=== PATIENT | female | born 1960 | race Caucasian/White ===

== ENCOUNTER 2022-04-16 09:59 | Emergency (ER) | payer BC, OTHER, SELFPAY ==
--- NOTE | ~2022-04-16 | CT_ITS ---
CT SOFT TISSUE NECK WITH CONTRAST CLINICAL INFORMATION: Right parotid swelling. Rule out abscess versus mastoiditis. COMPARISON: None available. TECHNIQUE: Following the intravenous administration of 60 mL of Omnipaque 350 intravenous contrast, helical imaging was performed in the axial plane with generation of coronal and sagittal reformatted images. This CT examination was performed using dose optimization techniques as appropriate, variously including the following: *Automated exposure control *Adjustment of mA and/or kV according to patient size (this includes techniques or standardized protocols for targeted exams where dose is matched to indication/reason for exam; i.e. extremities or head) *Use of iterative reconstruction technique FINDINGS: There is stranding and edema adjacent to the heterogeneous attenuation right greater than left parotid glands and submandibular glands, findings that could reflect bilateral parotitis and/or acute bilateral submandibular sialoadenitis. There is no discrete peripherally enhancing fluid collection to suggest a drainable abscess. Cellulitic changes extend to the submandibular/submental soft tissues bilaterally and superficial to the right sternocleidomastoid muscle. No retropharyngeal collections. There are multiple punctate calculi within the left parotid gland. No calculi within Warthin's nor Stensen's duct on either side. Given the presence of fatty replacement of the submandibular glands bilaterally and heterogeneous nodularity throughout the parotid glands bilaterally, recommend correlating for clinical signs and laboratory evidence of underlying Sjogren's. Nonpathologic size criteria lymph nodes throughout the suprahyoid and infrahyoid neck without pathologic size criteria lymphadenopathy. The thyroid gland is unremarkable. No superficial mucosal space lesions. The laryngeal structures are symmetric and normal. Retropharyngeal course of the proximal right internal carotid artery. The partially imaged intracranial compartment is unremarkable. There is multilevel cervical spondylosis, severe at C5-C6. No acute osseous findings. Mild sinus mucosal disease. Small fluid level within the left sphenoid sinus. Mastoid air cells remain well-aerated. CT/CT soft tissue neck w IV con IMPRESSION: - There is stranding and edema adjacent to the heterogeneous attenuation right greater than left parotid glands and submandibular glands, findings that could reflect bilateral parotitis and/or acute bilateral submandibular sialoadenitis. There is no discrete peripherally enhancing fluid collection to suggest a drainable abscess. Cellulitic changes extend to the submandibular/submental soft tissues bilaterally and superficial to the right sternocleidomastoid muscle. No retropharyngeal collections. There are multiple punctate calculi within the left parotid gland. No calculi within Warthin's nor Stensen's duct on either side. - Given the presence of fatty replacement of the submandibular glands bilaterally and heterogeneous nodularity throughout the parotid glands bilaterally, recommend correlating for clinical signs and laboratory evidence of underlying Sjogren's.
--- NOTE | ~2022-04-16 | XR_ITS ---
EXAMINATION: XR CHEST CLINICAL INFORMATION: Cough COMPARISON: 03/03/2018 TECHNIQUE: Frontal view of the chest was obtained. FINDINGS: Eventration of the right hemidiaphragm. Lungs are clear. No focal consolidation or mass. Normal pulmonary vascularity. No pleural effusion or pneumothorax. Normal cardiomediastinal silhouette. XR/XR chest 1V IMPRESSION: No acute pulmonary disease.
[2022-04-16 10:19] VITALS: BP 160/84; PULSE 103; RESP 18; TEMP 37.1; O2SAT 98; BMI 32.5
--- NOTE | 2022-04-16 12:19 | ED_ITS ---
HPI - General Adult General Chief complaint: General Medical Stated complaint: facial swelling Time Seen by Provider: 04/16/22 11:49 Source: patient Mode of arrival: ambulatory History of Present Illness HPI narrative: 61-year-old female with a past medical history of anxiety, Sjogren's, presenting to ED sent in from urgent care for right-sided facial swelling/ pain, sore throat, myalgias/body aches & cough x 1 week. Reports swelling has been gradually increasing. Denies known fever, ear pain, difficulty /inability to swallow, hearing loss/drainage from ear, recent travel, sick contacts Onset (ago): week(s) Related Data Home Medications Medication Instructions Recorded Confirmed famotidine 40 mg tablet (Pepcid) 40 mg PO BEDTIME PRN heartburn 01/06/21 06/21/21 Previous Rx's Medication Instructions Recorded metoprolol succinate 100 mg 100 mg PO DAILY #90 tabs 07/03/21 tablet,extended release 24 hr paroxetine HCl 10 mg tablet 10 mg PO QAM #90 tabs 01/08/22 amoxicillin 875 mg-potassium 1 tab PO BID 7 days #14 tabs 04/16/22 clavulanate 125 mg tablet fluticasone propionate 50 2 spray intranasal DAILY #16 grams 04/16/22 mcg/actuation nasal spray,suspension (Flonase Allergy Relief) Allergies Allergy/AdvReac Type Severity Reaction Status Date / Time adhesive [Adhesive] Allergy Mild BLISTERS Verified 04/16/22 09:24 codeine [Codeine] Allergy Mild VOMITING Verified 04/16/22 09:24 meperidine [From Demerol] AdvReac Mild VOMITING Verified 04/16/22 09:24 Review of Systems Review of Systems: Constitutional: No Fever, No Chills, No Fatigue, No Malaise ENT/Mouth: No Ear Pain, + Nasal Congestion, No Sinus Pain, No Hoarseness, + sore throat, + Rhinorrhea, No Swallowing Difficulty Eyes: No Eye Pain, No Swelling, No Redness, No Vision Changes Cardiovascular: No Chest Pain, No SOB, No Dyspnea on Exertion, No Orthopnea, No Edema, No Palpitations Respiratory: + Cough, No Sputum, No Wheezing, No Dyspnea Gastrointestinal: No Nausea, No Vomiting, No Diarrhea, No Constipation, No Abdominal pain Genitourinary: No Dysuria, No Urinary Frequency, No Hematuria, No Flank Pain, No Hesitancy Musculoskeletal: No joint pain, + Myalgias, No Joint Swelling Skin: No Skin Lesions, No rash Neuro: No Weakness, No Dizziness, No Headache Yes all other systems are reviewed and are negative Constitutional: Constitutional: Reports as per [facility] Past Medical History Attestation statement: The following information was validated with the patient. Medical History Family history of breast cancer in sister Family history of thyroid disease Family history of thyroid disease in father Generalized anxiety disorder Heartburn Intermittent lightheadedness Intermittent palpitations Palpitations Family History Family History Brother Substance use disorder Brother Substance use disorder Father Substance use disorder Social History Social History Housing: House Alcohol intake: never Patient Tobacco Use Status: Former Tobacco user Years Smoked: 5 yrs Smoked in Last 30 Days: No Use of substances other than those prescribed or required for medical reasons: No Advance Directives: No Advance Directives Information Provided: Yes service: No Current occupational status: employed Physical Exam ED Vital Signs: Vital Signs - 24 hr 04/16/22 10:19 04/16/22 14:24 Temperature 98.7 F Pulse Rate 103 H 106 H Respiratory Rate 18 17 Blood Pressure 160/84 H 150/74 H Pulse Oximetry 98 97 Oxygen Delivery Method Room Air Room Air BMI result Body Mass Index 32.5 Const General: cooperative, healthy appearing and no acute distress Orientation/consciousness: patient oriented x3 Limitations: no limitations HENMT Other: + right parotid gland swelling with tenderness. + Right-sided cervical/submandibular lymphadenopathy Head: Yes normal to inspection and Yes atraumatic Ears: hearing grossly normal bilaterally, mastoids normal and TM abnormal wth effusion serous General nose exam: Normal external nose present Face and sinus: Yes normal facial exam Mouth: Normal oral and palatal mucosa present Throat: Yes uvula midline, No peritonsillar mass, Yes posterior oropharynx abnormal ( mild erythema), No uvula laterally displaced and No uvular edema Eyes General: appearance normal, both eyes and all related structures EOM: EOMs intact bilaterally Neck Neck: Yes normal visual inspection, Yes no meningeal signs and No anterior neck swelling Resp Effort & Inspection: normal respiratory effort, not labored, no respiratory distress and no stridor Auscultation: clear to auscultation bilaterally, no crackles, no rales and no rhonchi Cardio Rate: regular rate Heart sounds: S1 normal heart sound present and S2 normal heart sound present GI Inspection: Yes normal to inspection Palpation (GI): Soft to palpation, nontender, no guarding and not rigid Skin Rashes: no rashes Wounds: no wounds Neuro General: patient oriented x3, tone normal and no meningeal signs Gait exam (Neuro): Normal gait present Extrem General: Yes normal to inspection, Yes no pedal edema and Yes normal gait Course Course Course Narrative: -1423-- no leukocytosis. ESR WNL. AST/ ALT /alk-phos mildly elevated - CRP elevated to 9.65 - COVID-19/influenza/ RSV/rapid strep negative CT soft tissue neck w IV con IMPRESSION: - There is stranding and edema adjacent to the heterogeneous attenuation right greater than left parotid glands and submandibular glands, findings that could reflect bilateral parotitis and/or acute bilateral submandibular sialoadenitis. There is no discrete peripherally enhancing fluid collection to suggest a drainable abscess. Cellulitic changes extend to the submandibular/submental soft tissues bilaterally and superficial to the right sternocleidomastoid muscle. No retropharyngeal collections. There are multiple punctate calculi within the left parotid gland. No calculi within Warthin's nor Stensen's duct on either side. ? - Given the presence of fatty replacement of the submandibular glands bilaterally and heterogeneous nodularity throughout the parotid glands bilaterally, recommend correlating for clinical signs and laboratory evidence of underlying Sjogren's. >> will give patient dose of p.o. Decadron in the ED, results discussed. Nontoxic, handling secretions, talking in complete sentences very. Discharged home on Augmentin and Flonase. XR chest 1V IMPRESSION: No acute pulmonary disease. Results discussed with patient including worrisome signs and symptoms and strict return precautions, and when to return to the emergency department. They verbalized understanding and feel safe for discharge at this time. Medications Administered Discontinued Medications Generic Name Dose Route Start Last Admin Trade Name Freq PRN Reason Stop Dose Admin Sodium Chloride 1,000 mls @ 999 mls/hr 04/16/22 12:30 04/16/22 15:22 Ns IV 12/19/22 13:30 Infused .Q1H1M KENA Infusion Iohexol 100 ml 04/16/22 14:01 04/16/22 14:01 Iohexol 350 Mg/Ml 100 Ml Infus..Btl IV 04/16/22 14:02 60 ml ONCE ONE Administration Ketorolac Tromethamine 15 mg 04/16/22 12:26 04/16/22 13:26 Ketorolac Tromethamine 15 Mg/Ml Vial IVPUSH 04/16/22 12:27 15 mg ONCE ONE Administration Medical Decision Making Medical Decision Making MDM Narrative: 61-year-old female with a past medical history of anxiety, Sjogren's, presenting to ED sent in from urgent care for right-sided facial swelling/ pain, sore throat, myalgias/body aches & cough x 1 week. on exam vital signs stable, NAD/ nontoxic-appearing, right-sided parotid gland swelling noted with right- sided cervical lymphadenopathy and TM effusion. Oropharynx WNL, uvula midline, no stridor, talking in complete sentences. Concern for viral illness vs parotidis vs otitis vs deeper infection/ abscess. Rule out pneumonia/bronchitis. Low suspicion for ACS, no evidence of [employer] plan: COVID-19/influenza/ RSV testing, labs, Monospot, rapid strep, CT neck Differential Diagnosis Differential Diagnoses: The differential diagnosis associated with the presentation includes Admission/Observation Consideration of admission/observation: Escalation of care including admission/observation considered Lab Data [facility] Lab Attestation statement: I reviewed the patient's lab results. Result Diagrams: 04/16/22 13:17 04/16/22 13:17 Labs: Lab Results 04/16/22 04/16/22 04/16/22 Range/Units 13:17 13:17 13:17 WBC 10.3 (4.8-10.8) X10*3/uL RBC 4.77 (4.20-5.50) X10*6/uL Hgb 14.4 (12.0-16.0) g/dl Hct 43.5 (37.0-47.0) % MCV 91.2 (80.0-98.0) fL MCH 30.2 (27.0-33.0) pg MCHC 33.1 (31.0-35.0) g/dl RDW 13.0 (11.0-16.0) % Plt Count 210 (160-400) X10*3/uL MPV 8.8 L (9.4-12.3) fL Immature Gran % (Auto) 0.3 (0.0-0.4) % Neut % (Auto) 85.3 H (45-73) % Lymph % (Auto) 6.4 L (20-40) % [place] % (Auto) 6.1 (2-11) % Eos % (Auto) 1.4 (0-4) % Baso % (Auto) 0.5 (0-2) % Lymph # (Auto) 0.7 L (1.2-4.9) X10*3/uL [place] # (Auto) 0.6 (0.1-1.2) X10*3/uL Eos # (Auto) 0.1 (0.0-0.4) X10*3/uL Baso # (Auto) 0.1 (0.0-0.2) X10*3/uL Abs Immat Gran (auto) 0.03 (0.00-0.03) X10*3/uL Absolute Neuts (auto) 8.8 H (2.0-8.3) x10*3/uL Absolute Nucleated RBC 0.000 (0.0-0.012) X10*3/uL Nucleated RBC % (auto) 0.0 (0.0-0.2) /100WBC ESR 19 (0-20) MM/HR Sodium 138 (135-145) mmol/L Potassium 3.9 (3.3-5.1) mmol/L Chloride 104 (96-108) mmol/L Carbon Dioxide 25 (22-29) mmol/L Anion Gap 13 (12-20) BUN 13 (9-16) mg/dL Creatinine 0.81 (0.5-1.4) mg/dL Estim Creat Clear Calc 89.3 Estimated GFR > 60 Random Glucose 91 (60-115) mg/dL Calcium 9.5 (8.4-10.2) mg/dL Magnesium 1.9 (1.6-2.6) mg/dL Total Bilirubin 1.2 H (0.0-1.0) mg/dL Direct Bilirubin 0.4 (0.0-0.5) mg/dL AST 61 H (5-31) U/L ALT 68 H (0-31) U/L Alkaline Phosphatase 123 H (39-117) U/L C-Reactive Protein 9.65 H (< or = 0.50) mg/dL Total Protein 6.7 (6.5-8.0) g/dL Albumin 4.3 (3.5-5.0) g/dL Monoscreen (Negative) Influenza Type A (PCR) (Negative) Influenza Type B (PCR) (Negative) RSV RNA Qual (PCR) (Negative) SARS-CoV-2 RNA (RT-PCR) (Negative) S. pyogenes GrpA SALLY (Negative) 04/16/22 04/16/22 04/16/22 Range/Units 13:17 13:17 13:17 WBC (4.8-10.8) X10*3/uL RBC (4.20-5.50) X10*6/uL Hgb (12.0-16.0) g/dl Hct (37.0-47.0) % MCV (80.0-98.0) fL MCH (27.0-33.0) pg MCHC (31.0-35.0) g/dl RDW (11.0-16.0) % Plt Count (160-400) X10*3/uL MPV (9.4-12.3) fL Immature Gran % (Auto) (0.0-0.4) % Neut % (Auto) (45-73) % Lymph % (Auto) (20-40) % [place] % (Auto) (2-11) % Eos % (Auto) (0-4) % Baso % (Auto) (0-2) % Lymph # (Auto) (1.2-4.9) X10*3/uL [place] # (Auto) (0.1-1.2) X10*3/uL Eos # (Auto) (0.0-0.4) X10*3/uL Baso # (Auto) (0.0-0.2) X10*3/uL Abs Immat Gran (auto) (0.00-0.03) X10*3/uL Absolute Neuts (auto) (2.0-8.3) x10*3/uL Absolute Nucleated RBC (0.0-0.012) X10*3/uL Nucleated RBC % (auto) (0.0-0.2) /100WBC ESR (0-20) MM/HR Sodium (135-145) mmol/L Potassium (3.3-5.1) mmol/L Chloride (96-108) mmol/L Carbon Dioxide (22-29) mmol/L Anion Gap (12-20) BUN (9-16) mg/dL Creatinine (0.5-1.4) mg/dL Estim Creat Clear Calc Estimated GFR Random Glucose (60-115) mg/dL Calcium (8.4-10.2) mg/dL Magnesium (1.6-2.6) mg/dL Total Bilirubin (0.0-1.0) mg/dL Direct Bilirubin (0.0-0.5) mg/dL AST (5-31) U/L ALT (0-31) U/L Alkaline Phosphatase (39-117) U/L C-Reactive Protein (< or = 0.50) mg/dL Total Protein (6.5-8.0) g/dL Albumin (3.5-5.0) g/dL Monoscreen Negative (Negative) Influenza Type A (PCR) NEGATIVE (Negative) Influenza Type B (PCR) NEGATIVE (Negative) RSV RNA Qual (PCR) NEGATIVE (Negative) SARS-CoV-2 RNA (RT-PCR) NEGATIVE (Negative) S. pyogenes GrpA SALLY Negative (Negative) Independent Interpretation I performed an independent interpretation of an: CT Scan External Record Review External record reviewed: Office record Discharge Plan Discharge Clinical Impression: Parotiditis, Cellulitis Patient Disposition: Home, Self-Care Instructions: Cellulitis (ED) Additional Instructions: Your CT scan shows bilateral inflammation of her parotid glands/ solitary docs. You also have cellulitic changes extending from your mandible to your sternocleidomastoid muscle your blood work was otherwise reassuring. Your x-ray was unremarkable. he does not negative for COVID-19, the flu, and RSV. Augmentin is an antibiotic please take as prescribed. Flonase is a nasal decongestion spray, take as prescribed if symptoms persist or worsen, you develop increasing swelling, any difficulty/inability to swallow, difficulty breathing, or fever return to the emergency department Prescriptions: New fluticasone propionate [Flonase Allergy Relief] 50 mcg/actuation spray,suspension 2 spray intranasal DAILY Qty: 16 0RF Rx Instructions: administer into each nostril amoxicillin-pot clavulanate 875-125 mg tablet 1 tab PO BID 7 Days Qty: 14 0RF No Action metoprolol succinate 100 mg tablet extended release 24 hr 100 mg PO DAILY Qty: 90 1RF paroxetine HCl 10 mg tablet 10 mg PO QAM Qty: 90 1RF famotidine [Pepcid] 40 mg tablet 40 mg PO BEDTIME PRN (Reason: heartburn) Referrals: Isabel Astorga MD [Primary Care Provider] - 3 days
[2022-04-16 13:22] LABS: MANUAL DIFF FLAG NO
[2022-04-16 13:25] LABS: Basophils Absolute Auto 0.1 X10*3/uL (0.0-0.2); Basophils Percent Auto 0.5 % (0-2); Eosinophils Absolute Auto 0.1 X10*3/uL (0.0-0.4); Eosinophils Percent Auto 1.4 % (0-4); Hematocrit 43.5 % (37.0-47.0); Hemoglobin 14.4 g/dl (12.0-16.0); Imm Gran Abs Auto 0.03 X10*3/uL (0.00-0.03); Imm Gran Pct Auto 0.3 % (0.0-0.4); Lymphocytes Absolute Auto 0.7 X10*3/uL (1.2-4.9); Lymphocytes Percent Auto 6.4 % (20-40); Mean Corpuscular HGB Conc 33.1 g/dl (31.0-35.0); Mean Corpuscular Hemoglobin 30.2 pg (27.0-33.0); Mean Corpuscular Volume 91.2 fL (80.0-98.0); Mean Platelet Volume 8.8 fL (9.4-12.3); Monocytes Absolute Auto 0.6 X10*3/uL (0.1-1.2); Monocytes Percent Auto 6.1 % (2-11); Neutrophils Absolute Auto 8.8 x10*3/uL (2.0-8.3); Neutrophils Percent Auto 85.3 % (45-73); Platelet Count 210 X10*3/uL (160-400); Red Blood Count 4.77 X10*6/uL (4.20-5.50); White Blood Count 10.3 X10*3/uL (4.8-10.8)
[2022-04-16] MEDS: Ketorolac Tromethamine 15 MG/ML VIAL IVPUSH (13:26)
[2022-04-16] MEDS: 0.9 % Sodium Chloride 1,000 ML 999 ML IV (13:26)
[2022-04-16 13:43] LABS: Alanine Aminotransferase 68 U/L (0-31); Albumin Level 4.3 g/dL (3.5-5.0); Alkaline Phosphatase 123 U/L (39-117); Anion Gap 13 (12-20); Aspartate Amino Transferase 61 U/L (5-31); Bilirubin Direct 0.4 mg/dL (0.0-0.5); Bilirubin Total 1.2 mg/dL (0.0-1.0); Blood Urea Nitrogen 13 mg/dL (9-16); C Reactive Protein 9.65 mg/dL (< or = 0.50); Calcium 9.5 mg/dL (8.4-10.2); Carbon Dioxide 25 mmol/L (22-29); Chloride 104 mmol/L (96-108); Creatinine Clr Calc Pharmacy 89.3; Estimated Glomerular Filt Rate > 60; Glucose Random 91 mg/dL (60-115); Magnesium 1.9 mg/dL (1.6-2.6); Potassium 3.9 mmol/L (3.3-5.1); Sodium 138 mmol/L (135-145); Total Protein 6.7 g/dL (6.5-8.0)
[2022-04-16 13:46] LABS: Strep A Nucleic Acid Negative (Negative)
[2022-04-16] MEDS: iohexoL 350 MG/ML 100 ML INFUS..BTL IV (14:01)
[2022-04-16 14:02] LABS: Influenza A PCR NEGATIVE (Negative); Influenza B PCR NEGATIVE (Negative); Resp Syncy Virus RNA Qual PCR NEGATIVE (Negative); SARS COV2 PCR INHOUSE NEGATIVE (Negative)
[2022-04-16 14:16] LABS: Erythrocyte Sedimentation Rate 19 MM/HR (0-20)
[2022-04-16 14:24] VITALS: BP 150/74; PULSE 106; RESP 17; O2SAT 97
[2022-04-16 14:33] LABS: Monotest Negative (Negative)
[2022-04-20 23:43] LABS: Mumps Virus IgM Antibody <1:20 titer
== END 2022-04-16 15:34 | disposition home or self-care (01) ==
PROVIDERS: Physician Assistant; Emergency Provider Emergency Medicine; PCP Internal Medicine
DX: K11.20 Sialoadenitis, unspecified (principal); L03.90 Cellulitis, unspecified; M79.10 Myalgia, unspecified site; R05.9 Cough, unspecified; M54.2 Cervicalgia; Z20.822 Contact with and (suspected) exposure to COVID-19; Z79.899 Other long term (current) drug therapy
CPT/HCPCS: 0241U; 36415; 70491; 71045; 80048; 80076; 83735; 85025; 85652; 86140; 86308; 86735; 87651; 96361; 96374; 99284; J1885; Q9967

== ENCOUNTER 2023-06-18 08:45 | Outpatient (AMB) | payer BC, OTHER, SELFPAY ==
--- NOTE | 2023-06-18 08:54 | MHC.PC.OV ---
Vital Signs 06/18/23 09:00 Height 5 ft 7.5 in Weight 227 lb BMI 35.0 BP 92/62 Blood Pressure Location Rt brachial Position Sitting Pulse 92 Pulse Source Pulse Oximeter Pulse Oximetry (%) 94 Oxygen Delivery Method Room Air Intake Visit Reasons: med follow up Intake Note: Pt is here today for her med f/u Allergies adhesive [Adhesive] Allergy (Mild, Verified 06/18/23 09:31) BLISTERS codeine [Codeine] Allergy (Mild, Verified 06/18/23 09:31) VOMITING meperidine [From Demerol] Adverse Reaction (Mild, Verified 06/18/23 09:31) VOMITING Medication List - Last Reconciled 06/18/23 by Isabel Astorga MD famotidine (Pepcid) 40 mg PO BEDTIME PRN fluticasone propionate 50 mcg/actuation (Flonase Allergy Relief) 2 sprays intranasal DAILY metoprolol succinate ER 100 mg PO DAILY paroxetine HCl 10 mg PO QAM Tobacco use date assessed: 06/18/23 Dental Screening Dental Screen Date: 06/18/23 Did you have a dental visit in the last 12 months?: No Was dental information given to patient?: Patient has dentist HPI med follow up HPI Details 62-year-old lady here today for follow-up. She has sinus tachycardia, takes metoprolol succinate 100 mg per tablet but has cut down dose to just half a tablet at night as she has been waking up with low blood pressure readings in the morning she denies any accompanying chest pain, no shortness of breath or lightheadedness. She has frequent heartburn symptoms, has to take famotidine on a daily basis. 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 She has been applying hydrocortisone cream in the past which has helped, tried [id number] cortisone 10 cream which did not afford any relief. She has generalized anxiety anxiety disorder currently on paroxetine 10 mg daily in the morning which she has been on for several years now. Needs a refill [facility] Medical History Contact dermatitis Sjogren's syndrome Parotitis Intermittent palpitations Intermittent lightheadedness Family history of thyroid disease Family history of thyroid disease in father Family history of breast cancer in sister Generalized anxiety disorder Heartburn Palpitations Surgical History (Updated 06/18/23 @ 23:53 by Isabel Astorga MD) No pertinent past surgical history Family History Brother Substance use disorder Brother Substance use disorder Father Substance use disorder Social History Housing: House Alcohol intake: never Patient Tobacco Use Status: Former Tobacco user Years Smoked: 5 yrs e-Cigarette/Vaping Use: Never Used service: No Current occupational status: employed Cognitive needs: No Hearing needs: No Vision needs: Yes Questionnaire PHQ-9 Over the last 2 weeks, how often have you been bothered by any of the following problems? Depression Screening Interpretation: Negative Depression Screening Done: Yes 16070 - PHQ-9 Billing: Patient declined-do not bill Source: Developed by Drs. Tahir Burgess, Dominga Bran, Tal Kirby and colleagues, with an educational ricki from [employer]. Thrive Questionnaire Date Thrive assessed: 06/18/23 What is your living situation today?: I have a steady place to live Within the past 12 months, did the food you bought not last and you didn't have the money to get more?: Never true Within the past 12 months, did you worry whether your food would run out before you got money to buy more?: Never true Do you have trouble paying for medicines?: No Do you have trouble getting transportation to medical appointments?: No Do you have trouble paying your heating and electricity bill?: No Do you have trouble taking care of your child, family member or friend?: No Do you have trouble with day-to-day activities such as bathing, preparing meals, shopping, managing finances, etc.?: No Are you currently unemployed and looking for a job?: No Are you interested in more education?: No THRIVE Score: 0 AUDIT C Alcohol Use Questionnaire (AUDIT-C) 1. How often do you have a drink containing alcohol?: Never Total Score: 0 BARBARA-7 AMB Questionnaire BARBARA-7 Date BARBARA - 7 assessed: 06/18/23 Feeling nervous, anxious, or on edge: 0 = Not at all Not being able to stop or control worryin = Not at all Worrying too much about different things: 0 = Not at all Trouble relaxin = Not at all Being so restless that it is hard to sit still: 0 = Not at all Becoming easily annoyed or irritable: 0 = Not at all Feeling afraid as if something awful might happen: 0 = Not at all Total BARBARA-7 score (0-4 normal; 5-9 mild; 10-14 moderate; 15-21 severe): 0 Source: Developed by Drs. Tahir Burgess, Dominga Bran, Tal Kirby and colleagues, with an educational ricki from [employer]. BARBARA-7 Assessment Billing BARBARA-7 Assessment Tool: BARBARA-7 Assessment 39991 Review of Systems Const Denies body aches, Denies fever(s), Denies headache(s) and Denies weakness Eyes Denies change in vision ENT Denies dysphagia, Denies dizziness, Reports dry mouth, Denies headache(s), Denies mouth lesions, Denies nasal congestion, Denies nasal discharge, Denies disequilibrium, Denies sinus pain and Denies sore throat Card Denies chest pain, Denies lightheadedness and Denies dyspnea Resp Denies chest congestion, Denies cough and Denies dyspnea GI Denies abdominal pain, Denies change in bowel habits, Denies dysphagia and Reports heartburn (Takes famotidine daily) Musc Reports no additional complaints Skin/Breast Reports as per HPI, Denies breast pain and Denies breast mass Neuro Denies dizziness, Denies headache(s), Denies disequilibrium and Denies weakness Psych Reports no additional complaints Endo Reports no additional complaints Claudio/Lymph Reports no additional complaints Aller/Immun Reports no additional complaints Physical exam (Primary Care) Vital Signs: Last Vital Signs Pulse 92 06/18/23 09:00 BP 92/62 06/18/23 09:00 Pulse Ox 94 06/18/23 09:00 Oxygen Delivery Method Room Air 06/18/23 09:00 BMI result Body Mass Index 35.0 Tobacco/Smoking Status: Tobacco use Status Tobacco use date assessed 06/18/23 06/18/23 09:04 Patient Tobacco Use Status Former Tobacco user 06/18/23 09:04 e-Cigarette/Vaping Use Never Used 06/18/23 09:04 Depression Screening Interpretation: Negative Thrive Assessment: Date of Thrive Assessment Date Thrive assessed 06/18/23 06/18/23 09:06 Const Other: Alert oriented x3, no acute cardiorespiratory distress noted, ambulatory with normal gait Orientation/consciousness: patient oriented x3 HENMT Head: Yes normocephalic Ears: hearing grossly normal bilaterally, external ears normal, TM's normal bilaterally and EAC's normal Eyes General: appearance normal, both eyes and all related structures Neck Neck: Yes full ROM, Yes no lymphadenopathy and Yes supple Resp Auscultation: clear to auscultation bilaterally Cardio Other: S1-S2 present regular rate and rhythm GI Palpation (GI): Soft to palpation, nontender, no guarding and no masses Auscultation: normal bowel sounds Skin Other: Erythematous patch on distal forearm right hand/wrist Neuro General: patient oriented x3, gait normal, tone normal, moves all extremities and CN's II-XI intact bilaterally Gait exam (Neuro): Normal gait present Extrem General: Yes full ROM, Yes no joint enlargement, Yes no clubbing, cyanosis or edema and Yes normal gait Psych Appearance: grossly normal and well kempt Mental Status: mental status grossly normal Speech and movement: Normal speech and movement present Affect: normal affect Attitude: cooperative Thought process: Normal thought process present Assessment and Plan Assessment & Plan (1) Generalized anxiety disorder: Code(s): F41.1 - Generalized anxiety disorder Plan: Continue on paroxetine, 10 mg daily, refill sent (2) Intermittent palpitations: Code(s): R00.2 - Palpitations Plan: Continue with metoprolol ER 100 mg per tablet, takes half a tablet at bedtime. (3) Heartburn: Code(s): R12 - Heartburn Plan: Prescription sent for omeprazole 40 mg per capsule to take 1 capsule once a day an hour before eating for 2 months, and afterwards to just take famotidine 40 mg once a day as needed for heartburn symptoms (4) Contact dermatitis: Code(s): L25.9 - Unspecified contact dermatitis, unspecified cause Qualifiers: Contact dermatitis trigger: other chemical product Contact dermatitis type: irritant Qualified Code(s): L24.5 - Irritant contact dermatitis due to other chemical products Plan: Prescription sent for triamcinolone 0.5% cream, to apply to affected area once or twice a day for no more than 10 days at a time. Orders: Orders TSH reflex Free T4 Today F41.1 - Generalized anxiety disorder, R00.2 - Palpitations, R12 - Heartburn Complete Blood Count Auto Diff Today F41.1 - Generalized anxiety disorder, R00.2 - Palpitations, R12 - Heartburn Comprehensive Vinson. Panel Fast Today F41.1 - Generalized anxiety disorder, R00.2 - Palpitations, R12 - Heartburn Lipid Panel Today F41.1 - Generalized anxiety disorder, R00.2 - Palpitations, R12 - Heartburn Vitamin D 25-OH Total Today F41.1 - Generalized anxiety disorder, R00.2 - Palpitations, R12 - Heartburn Medications: New omeprazole 40 mg PO DAILY 90 caps 0RF triamcinolone acetonide 0.5% 1 appl topical DAILY 15 grams 1RF L25.9 - Unspecified contact dermatitis, unspecified cause Refilled paroxetine HCl 10 mg PO QAM 90 tabs 4RF Coding Level of Care Code Est Pt Level 4 (34431) Diagnoses Generalized anxiety disorder F41.1 Intermittent palpitations R00.2 Heartburn R12 Irritant contact dermatitis due to other chemical products L24.5 Contact dermatitis trigger: other chemical product Contact dermatitis type: irritant Additional Codes BARBARA-7 Assessment Billing - BARBARA-7 Assessment Tool: BARBARA-7 Assessment 69360 ([id number])
[2023-06-18 09:00] VITALS: BP 92/62; PULSE 92; O2SAT 94; BMI 35.0
== END 2023-06-18 12:34 | disposition home or self-care (01) ==
PROVIDERS: PCP Internal Medicine; Visit Provider Internal Medicine
DX: F41.1 Generalized anxiety disorder (principal); R00.2 Palpitations; R12 Heartburn; L24.5 Irritant contact dermatitis due to other chemical products
CPT/HCPCS: 99214

== ENCOUNTER 2023-06-26 08:26 | Outpatient (REF) | payer BC, OTHER, SELFPAY ==
[2023-06-26 11:08] LABS: MANUAL DIFF FLAG NO
[2023-06-26 11:28] LABS: Basophils Absolute Auto 0.1 X10*3/uL (0.0-0.2); Basophils Percent Auto 1.5 % (0-2); Eosinophils Absolute Auto 0.2 X10*3/uL (0.0-0.4); Eosinophils Percent Auto 3.8 % (0-4); Hematocrit 42.7 % (37.0-47.0); Imm Gran Abs Auto 0.02 X10*3/uL (0.00-0.03); Imm Gran Pct Auto 0.4 % (0.0-0.4); Lymphocytes Absolute Auto 0.8 X10*3/uL (1.2-4.9); Lymphocytes Percent Auto 16.6 % (20-40); Mean Corpuscular HGB Conc 32.8 g/dl (31.0-35.0); Mean Corpuscular Hemoglobin 29.9 pg (27.0-33.0); Mean Platelet Volume 9.7 fL (9.4-12.3); Monocytes Absolute Auto 0.3 X10*3/uL (0.1-1.2); Monocytes Percent Auto 7.2 % (2-11); Neutrophils Absolute Auto 3.3 x10*3/uL (2.0-8.3); Neutrophils Percent Auto 70.5 % (45-73); Platelet Count 231 X10*3/uL (160-400); Red Blood Count 4.69 X10*6/uL (4.20-5.50); Red Cell Distribution Width 13.2 % (11.0-16.0); White Blood Count 4.7 X10*3/uL (4.8-10.8)
[2023-06-26 11:59] LABS: Alanine Aminotransferase 18 U/L (0-31); Alkaline Phosphatase 69 U/L (39-117); Anion Gap 9 (12-20); Aspartate Amino Transferase 25 U/L (5-31); Bilirubin Total 0.6 mg/dL (0.0-1.0); Blood Urea Nitrogen 22 mg/dL (9-16); Calcium 9.7 mg/dL (8.4-10.2); Carbon Dioxide 31 mmol/L (22-29); Chloride 105 mmol/L (96-108); Cholesterol 198 mg/dL (<200); Estimated Glomerular Filt Rate > 60; Glucose Fasting 83 mg/dL (60-99); HDL Cholesterol 49 mg/dL (>40); LDL Cholesterol Calculated 131 mg/dL (<100); Potassium 4.2 mmol/L (3.3-5.1); Sodium 141 mmol/L (135-145); Total Protein 6.5 g/dL (6.5-8.0); Triglycerides 93 mg/dL (<150)
[2023-06-26 12:03] LABS: TSH reflex Free T4 3.07 uIU/mL (0.32-4.0); Vitamin D 25-OH Total 25.8 ng/mL (>30)
== END 2023-06-26 08:27 | disposition home or self-care (01) ==
LOC: HO.HMGCLDS 08:26
PROVIDERS: PCP Internal Medicine; Visit Provider Internal Medicine
DX: Z13.6 Encounter for screening for cardiovascular disorders (principal); R00.2 Palpitations; R12 Heartburn; F41.1 Generalized anxiety disorder
CPT/HCPCS: 36415; 80053; 80061; 82306; 84443; 85025

== ENCOUNTER 2024-06-18 08:15 | Outpatient (REF) | payer MEDICARE, OTHER, SELFPAY ==
--- OUTSIDE RECORDS SUMMARY | 2024-06-18 09:32 | XMS_ITS | Clinical Summary ---
Author Organization [facility] Address [address] [place] [address] Care Team Providers Care Client Technical Professional Name Role Phone Isabel Astorga MD Primary Care Provider [phone] Allergies No known active allergies Medications Medication [...] age to complete this topic Care Teams Client Technical Professional Relationship Specialty Start Date End Date Isabel Astorga MD [address] [place] [address] PCP - General Internal Medicine 06/23/21
--- OUTSIDE RECORDS SUMMARY | 2024-06-18 09:32 | XMS_ITS | Clinical Summary ---
Author Organization [facility] Address [address] [place] [address] Care Team Providers Care Branch Account Executive Name Role Phone Isabel Astorga MD Primary [...] age to complete this topic Care Teams Branch Account Executive Relationship Specialty Start Date End Date Isabel Astorga MD [address] [place] [address] PCP - General Internal Medicine 10/12/11
[2024-06-18 11:15] LABS: Influenza A PCR NEGATIVE (Negative); Influenza B PCR NEGATIVE (Negative); Resp Syncy Virus RNA Qual PCR NEGATIVE (Negative); SARS COV2 PCR INHOUSE NEGATIVE (Negative)
== END 2024-06-18 08:16 | disposition home or self-care (01) ==
LOC: HO.LAB 08:15
PROVIDERS: PCP Internal Medicine; Visit Provider Nurse Practitioner Family
DX: J06.9 Acute upper respiratory infection, unspecified (principal)
CPT/HCPCS: 0241U; 99212

== ENCOUNTER 2024-06-18 08:15 | Outpatient (AMB) | payer MEDICARE, OTHER, SELFPAY ==
--- OUTSIDE RECORDS SUMMARY | 2024-06-18 08:23 | XMS_ITS | Clinical Summary ---
Author Organization [facility] Address [address] [place] [address] Care Team Providers Care Thoracic Surgeon Name Role Phone Isabel Astorga MD Primary Care Provider [phone] Allergies No known active allergies Medications Medication Sig Dispensed Refills Start Date End Date Status metoprolol succinate (TOPROL-XL) 24 hr tablet 100 mg Take 100 mg by mouth daily. 0 06/27/2020 Active PARoxetine (PAXIL) 10 MG tablet TAKE 1 TABLET BY MOUTH EVERY DAY IN AM 0 06/27/2020 Active meloxicam (MOBIC) 15 MG tablet Take 1 tablet daily for 7 days following surgery, beginning the night of surgery 7 tablet 0 05/29/2021 Active gabapentin (Neurontin) 300 MG capsule Take 300mg for 3 days at bedtime. Please start 1 night prior to surgery 3 capsule 0 05/29/2021 Active oxyCODONE (ROXICODONE) 5 MG immediate release tablet Take 1 tablet (5 mg total) by mouth every 6 (six) hours as needed for pain. Do not take until after surgery 25 tablet 0 05/29/2021 Active promethazine (PHENERGAN) 12.5 MG tablet Take 1 tablet (12.5 mg total) by mouth every 8 (eight) hours as needed for nausea. Use after surgery as needed 4 tablet 0 05/29/2021 Active Active Problems Problem Noted Date Diagnosed Date Right knee pain 12/15/2021 Arthritis of right knee 12/15/2021 Nguyen's cyst of knee, right 12/15/2021 S/P right rotator cuff repair 09/04/2021 Subluxation of shoulder, acquired, right, initia l encounter 07/28/2020 Labral tear of shoulder, right, initial encounte r 07/28/2020 Rotator cuff tear arthropathy of right shoulder 07/28/2020 Social History Tobacco Use Types Packs/Day Years Used Date Smoking Tobacco: Never Smokeless Tobacco: Never Alcohol Use Standard Drinks/Week Comments Never 0 (1 standard drink = 0.6 oz pur e alcohol) Sex and Gender Information Value Date Recorded Sex Assigned at Not on file Gender Identity Not on file Sexual Orientation Not on file Job Start Date Occupation Industry Not on file Not on file Not on file Last Filed Vital Signs Vital Sign Reading Time Taken Comments Blood Pressure - - Pulse - - Temperature - - Respiratory Rate - - Oxygen Saturation - - Inhaled Oxygen Concentration - - Weight 100.2 kg (221 lb) 01/15/2022 10:13 AM EDT Height 175.3 cm (5' 9 ) 01/15/2022 10:13 AM EDT Body Mass Index 32.64 01/15/2022 10:13 AM EDT Plan of Treatment Health Maintenance Due Date Last Done Comments Hepatitis C Screening 1960 COVID-19 Vaccine (#1) 05/04/1959 Depression Screening 1970 BMI Counseling 1976 Preventative Health Evaluation 1976 DTap / Tdap / Td (1 - Tdap) 1977 Cervical Cancer Screening (P ap Smear) 11/02/1979 Colon Cancer Screening (Colonoscopy) 11/02/2003 Breast Cancer Screening (Mammogram) 2008 Shingrix-Zoster Vaccine (1 of 2) 2008 Fall Risk Assessment 11/02/2023 Osteoporosis Screening (DEXA Scan) 11/02/2023 Pneumococcal Vaccine (1 of 1 - PCV) 11/02/2023 Influenza Vaccine (#1) 2023 RSV Adult > 60+ Yrs or Pregn ant (1 - 1-dose 75+ series) 2033 Hepatitis B Vaccines Aged Out No long er eligible based on patient's age to complete this topic Pneumococcal Vaccine Aged Out No long er eligible based on patient's age to complete this topic RSV Ped < 20 months Aged Out No longe r eligible based on patient's age to complete this topic Care Teams Thoracic Surgeon Relationship Specialty Start Date End Date Isabel Astorga MD [address] [place] [address] PCP - General Internal Medicine 06/23/21
--- OUTSIDE RECORDS SUMMARY | 2024-06-18 08:23 | XMS_ITS ---
Author Name [facility] Organization Unknown History of Medication Use Medication Directions Dispensed Refills Start Date End Date Stat paroxetine 10 mg tablet TAKE 1 TABLET BY MOUTH EVERY MORNING active metoprolol succinate ER 100 mg tablet,extended release 24 hr TAKE 100 MG ORALLY DAILY SCHEDULE NEXT PCP APPT FOR FUTURE REFILLS active
--- OUTSIDE RECORDS SUMMARY | 2024-06-18 08:24 | XMS_ITS | Clinical Summary ---
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 PVCs Family History Medical History Relation Name Comments Other: cardiomyopathy Brother 1 alcoho l-induced Relation Name Status Comments Brother 1 Brother 2 Social History Tobacco Use Types Packs/Day Years Used Date Smoking Tobacco: Former Alcohol Use Standard Drinks/Week Comments Not Asked 0 (1 standard drink = 0.6 oz pur e alcohol) Comments Unknown Sex and Gender Information Value Date Recorded Sex Assigned at Not on file Legal Sex Female 7:11 PM EST Gender Identity Not on file Sexual Orientation Not on file Obstetrics History Last Filed Vital Signs Vital Sign Reading Time Taken Comments Blood Pressure - - Pulse - - Temperature - - Respiratory Rate - - Oxygen Saturation - - Inhaled Oxygen Concentration - - Weight 100 kg (221 lb) 01/15/2022 10:13 AM EDT Height 175.3 cm (5' 9 ) 01/15/2022 10:13 AM EDT Body Mass Index 32.64 01/15/2022 10:13 AM EDT Plan of Treatment Health Maintenance Due Date Last Done Comments Breast Cancer Screening 1960 DTaP,Tdap,and Td Vaccines (1 - Tdap) 1977 Cervical Cancer Screening: P ap Smear 11/02/1979 Pneumococcal Vaccine: 50+ Ye ars (1 of 1 - PCV) 2008 Zoster Vaccines (1 of 2) 2008 Colorectal Cancer Screening: Colonoscopy 04/06/2022 Depression Screening 04/06/2022 Hepatitis C Screening 04/06/2022 Osteoporosis Screening (Bone Density Screening) 04/06/2022 Social Influencers of Health Screening 04/06/2022 Falls Risk Assessment 11/02/2023 COVID-19 Vaccine ( - 2023-2 5 season) 2023 Influenza Vaccine (#1) 2023 RSV Immunization Patients 60 + Years Old (1 - 1-dose 75+ series) 2033 HIB Vaccines Aged Out No longer eligi ble based on patient's age to complete this topic HPV Vaccines Aged Out No longer eligi ble based on patient's age to complete this topic Hepatitis A Vaccines Aged Out No long er eligible based on patient's age to complete this topic Hepatitis B Vaccines Aged Out No long er eligible based on patient's age to complete this topic IPV Vaccines Aged Out No longer eligi ble based on patient's age to complete this topic MMR Vaccines Aged Out No longer eligi ble based on patient's age to complete this topic Meningococcal ACWY Vaccine Aged Out N o longer eligible based on patient's age to complete this topic Meningococcal B Vacine Aged Out No lo nger eligible based on patient's age to complete this topic Pneumococcal Vaccine: Pediat rics (0 to 5 Years) and At-Risk Patients (6 to 64 Years) Aged Out No longer eligible b ased on patient's age to complete this topic RSV Immunization Patients Un jaylin 20 months Aged Out No longer eligible b ased on patient's age to complete this topic Varicella Vaccines Aged Out No longer eligible based on patient's age to complete this topic Care Teams Curriculum Assistant Principal Relationship Specialty Start Date End Date Isabel Astorga MD [address] [place] [address] PCP - General Internal Medicine 10/12/11
--- NOTE | 2024-06-18 08:28 | AM.OFFWIN_ITS ---
Intake Vital Signs 06/18/24 08:29 Weight 226 lb BP 130/84 Blood Pressure Location Rt brachial Position Sitting Pulse 74 Pulse Source Pulse Oximeter Temp 100.3 F Temp Source Oral Pulse Oximetry (%) 97 Oxygen Delivery Method Room Air Intake Visit Reasons: EP-flu symptoms Intake Note: Patient here for fever,chills, headache, neck swelling and congestion that started saturday. Patient Tobacco Use Status: Former Tobacco user Allergies adhesive [Adhesive] Allergy (Mild, Verified 06/18/24 08:30) BLISTERS codeine [Codeine] Allergy (Mild, Verified 06/18/24 08:30) VOMITING meperidine [From Demerol] Adverse Reaction (Mild, Verified 06/18/24 08:30) VOMITING Do you need a note to return to daycare/school/sports/work: No HPI HPI Comments History of Present Illness Details 63 y/o female patient who presents to [facility] walk in clinic with c/o URI symptoms since Saturday. Reports Swollen parotid glands, fevers, chills, and hard to swallow. H/o Parotitis in the past, treated with Augmentin. [facility] Medical History (Updated 06/18/24 @ 08:50 by Jazz Horner NP) Acute respiratory disease Contact dermatitis Sjogren's syndrome Parotitis Intermittent palpitations Intermittent lightheadedness Family history of thyroid disease Family history of thyroid disease in father Family history of breast cancer in sister Generalized anxiety disorder Heartburn Palpitations Surgical History (Updated 06/18/23 @ 23:53 by Isabel Astorga MD) No pertinent past surgical history Family History Brother Substance use disorder Brother Substance use disorder Father Substance use disorder Social History Housing: House Alcohol intake: never Patient Tobacco Use Status: Former Tobacco user Years Smoked: 5 yrs e-Cigarette/Vaping Use: Never Used service: No Current occupational status: employed Cognitive needs: No Hearing needs: No Vision needs: Yes Review of Systems Const All systems reviewed & are unremarkable except as noted in HPI and below Physical Exam Vital Signs: Last Vital Signs Temp 100.3 F 06/18/24 08:29 Pulse 74 06/18/24 08:29 BP 130/84 06/18/24 08:29 Pulse Ox 97 06/18/24 08:29 Oxygen Delivery Method Room Air 06/18/24 08:29 Const General: cooperative and no acute distress Nutritional Appearance: obese Orientation/consciousness: patient oriented x3 HEENT Head: Yes normocephalic Ears: external ears normal and TM abnormal with fluid behind the TM bilateral General nose exam: Abnormal mucous membranes and turbinates present pale Face and sinus: Yes sinuses nontender Mouth: moist mucous membranes Throat: Yes abnormal tonsil (Enlarged Tonsils + 3) and Yes other (Enlarged Parotid glands) Resp Effort & Inspection: normal respiratory effort and able to speak in complete sentences Auscultation: clear to auscultation bilaterally, no crackles, no rales, no rhonchi and no wheezes Cardio Heart sounds: S1 normal heart sound present and S2 normal heart sound present Neuro General: patient oriented x3 Assessment & Plan Assessment & Plan (1) Acute respiratory disease: Code(s): J06.9 - Acute upper respiratory infection, unspecified Plan: Ordered SARs Acetaminophen for pain and fever relief. (2) Glands swollen: Code(s): R59.9 - Enlarged lymph nodes, unspecified Plan: Ordered Abx for Parotitis Treatment Ordered Prednisone Orders: Orders SARS-CoV2/FLU/RSV Today J06.9 - Acute upper respiratory infection, unspecified Medications: New prednisone 50 mg PO DAILY 5 days 5 tabs 0RF R59.9 - Enlarged lymph nodes, unspecified amoxicillin-pot clavulanate 875-125 mg 1 tab PO Q12H 10 days 20 tabs 0RF R59.9 - Enlarged lymph nodes, unspecified Coding Level of Care Code Est Pt Level 4 (65074) Diagnoses Acute respiratory disease J06.9 Glands swollen R59.9 Time Spent (min) 20
[2024-06-18 08:29] VITALS: BP 130/84; PULSE 74; TEMP 37.9; O2SAT 97
== END 2024-06-18 09:02 | disposition home or self-care (01) ==
PROVIDERS: PCP Internal Medicine; Visit Provider Nurse Practitioner Family
DX: J06.9 Acute upper respiratory infection, unspecified (principal); R59.9 Enlarged lymph nodes, unspecified

== ENCOUNTER 2024-06-22 09:19 | Outpatient (AMB) | payer BC, OTHER, SELFPAY ==
--- NOTE | 2024-06-22 09:21 | A.OFFPC_ITS ---
Vital Signs 06/22/24 09:26 Height 5 ft 7 in Weight 224 lb BMI 35.1 BP 102/70 Blood Pressure Location Rt brachial Position Sitting Pulse 96 Pulse Source Pulse Oximeter Temp 98.6 F Temp Source Oral Pulse Oximetry (%) 94 Oxygen Delivery Method Room Air Intake Visit Reasons: Med. Review Intake Note: Pt is here today to f/u on medication metoprolol refill Allergies adhesive [Adhesive] Allergy (Mild, Verified 06/23/24 00:12) BLISTERS codeine [Codeine] Allergy (Mild, Verified 06/23/24 00:12) VOMITING meperidine [From Demerol] Adverse Reaction (Mild, Verified 06/23/24 00:12) VOMITING Medication List - Last Reconciled 06/23/24 by Isabel Astorga MD amoxicillin-pot clavulanate 875-125 mg 1 tab PO Q12H 10 days famotidine (Pepcid) 40 mg PO BEDTIME PRN fluticasone propionate 50 mcg/actuation (Flonase Allergy Relief) 2 sprays intranasal DAILY metoprolol succinate ER 50 mg PO DAILY 3 months omeprazole 40 mg PO DAILY paroxetine HCl 10 mg PO QAM triamcinolone acetonide 0.5% 1 appl topical DAILY Tobacco use date assessed: 06/22/24 Fall risk assessment: No Falls in past year Last assessed Fall Risk: 06/22/24 Dental Screening Dental Screen Date: 06/22/24 HPI Med. Review HPI Details 63-year-old lady with history dyslipidem ia, Sjogren syndrome, intermittent palpitations, and generalized anxiety disorder, here today for follow-up. She has been taking metoprolol succinate 50 mg p.o. daily with blood pressure stable and controlled. Anxiety is controlled with taking paroxetine 10 mg daily. Recently seen at the at the walk-in clinic and treated for acute sinusitis. Has been taking Augmentin and using Flonase, which has been helping. Patient however still complaining of nasal congestion, and will still drainage worse at night. No improvement with taking [id number] Mucinex [facility] Medical History (Updated 06/23/24 @ 00:18 by Isable Astorga MD) Hx of parotitis Dyslipidemia Vitamin D deficiency Contact dermatitis Sjogren's syndrome Parotitis Intermittent palpitations Intermittent lightheadedness Family history of thyroid disease Family history of thyroid disease in father Family history of breast cancer in sister Generalized anxiety disorder Heartburn Palpitations Surgical History No pertinent past surgical history Family History Brother Substance use disorder Brother Substance use disorder Father Substance use disorder Social History Housing: House Alcohol intake: never Patient Tobacco Use Status: Former Tobacco user Years Smoked: 5 yrs e-Cigarette/Vaping Use: Never Used service: No Current occupational status: employed Cognitive needs: No Hearing needs: No Vision needs: Yes Questionnaire PHQ-9 Over the last 2 weeks, how often have you been bothered by any of the following problems? 1. Little interest or pleasure in doing things: not at all 2. Feeling down, depressed, or hopeless: not at all 3. Trouble falling or staying asleep, or sleeping too much: several days 4. Feeling tired or having little energy: several days 5. Poor appetite or overeating: not at all 6. Feeling bad about yourself - or that you are a failure or have let yourself or your family down: not at all 7. Trouble concentrating on things, such as reading the newspaper or watching television: not at all 8. Moving or speaking so slowly that other people could have noticed. Or the opposite - being so fidgety or restless that you have been moving around a lot more than usual: not at all 9. Thoughts that you would be better off or of hurting yourself in some way: not at all Total score: 2 Depression Screening Interpretation: Negative Depression Screening Done: Yes 23527 - PHQ-9 Billing: Yes Source: Developed by Drs. Tahir Burgess, Dominga Bran, Tal Kirby and colleagues, with an educational ricki from [employer]. Thrive Questionnaire Date Thrive assessed: 06/18/23 AUDIT C Alcohol Use Questionnaire (AUDIT-C) 1. How often do you have a drink containing alcohol?: Never Total Score: 0 BARBARA-7 AMB Questionnaire BARBARA-7 Date BARBARA - 7 assessed: 06/23/24 Feeling nervous, anxious, or on edge: 0 = Not at all Not being able to stop or control worryin = Not at all Worrying too much about different things: 0 = Not at all Trouble relaxin = Not at all Being so restless that it is hard to sit still: 0 = Not at all Becoming easily annoyed or irritable: 0 = Not at all Feeling afraid as if something awful might happen: 0 = Not at all Total BARBARA-7 score (0-4 normal; 5-9 mild; 10-14 moderate; 15-21 severe): 0 Source: Developed by Drs. Tahir Burgess, Dominga Bran, Tal Kirby and colleagues, with an educational ricki from [employer]. BARBARA-7 Assessment Billing BARBARA-7 Assessment Tool: BARBARA-7 Assessment 74484 Review of Systems Const Denies body aches, Denies fever(s) and Denies weakness Eyes Denies change in vision ENT Reports as per HPI, Denies dysphagia, Denies dizziness, Denies nasal discharge, Denies disequilibrium and Denies sore throat Card Denies chest pain, Denies lightheadedness and Denies dyspnea Resp Denies chest congestion, Denies cough and Denies dyspnea GI Denies abdominal pain, Denies change in bowel habits, Denies dysphagia and Reports heartburn (Takes famotidine daily) Musc Reports no additional complaints Neuro Denies dizziness, Denies disequilibrium and Denies weakness Psych Reports no additional complaints Endo Reports no additional complaints Claudio/Lymph Reports no additional complaints Aller/Immun Reports no additional complaints Physical exam (Primary Care) Vital Signs: Last Vital Signs Temp 98.6 F 06/22/24 09:26 Pulse 96 06/22/24 09:26 BP 102/70 06/22/24 09:26 Pulse Ox 94 06/22/24 09:26 Oxygen Delivery Method Room Air 06/22/24 09:26 BMI result Body Mass Index 35.1 Tobacco/Smoking Status: Tobacco use Status Tobacco use date assessed 06/22/24 06/22/24 09:22 Patient Tobacco Use Status Former Tobacco user 06/22/24 09:22 e-Cigarette/Vaping Use Never Used 06/22/24 09:22 Depression Screening Interpretation: Negative Thrive Assessment: Date of Thrive Assessment Date Thrive assessed 06/18/23 06/22/24 09:22 Const Other: Alert oriented x3, no acute cardiorespiratory distress noted, ambulatory with normal gait HENMT Head: Yes normocephalic Ears: external ears normal, TM's normal bilaterally and EAC's normal General nose exam: Normal external nose present, No nasal discharge present and Abnormal mucous membranes and turbinates present erythematous Face and sinus: Yes sinuses nontender and Yes face symmetric Mouth: Normal oral and palatal mucosa present, Normal salivary glands and ducts present and oropharynx normal Eyes General: appearance normal, both eyes and all related structures Neck Neck: Yes full ROM, Yes no lymphadenopathy and Yes supple Resp Auscultation: clear to auscultation bilaterally Cardio Other: S1-S2 present regular rate and rhythm GI Palpation (GI): Soft to palpation, nontender, no guarding and no masses Auscultation: normal bowel sounds Neuro General: gait normal, tone normal, moves all extremities and CN's II-XI intact bilaterally Gait exam (Neuro): Normal gait present Extrem General: Yes full ROM, Yes no joint enlargement, Yes no clubbing, cyanosis or edema and Yes normal gait Psych Appearance: grossly normal and well kempt Mental Status: mental status grossly normal Speech and movement: Normal speech and movement present Affect: normal affect Attitude: cooperative Thought process: Normal thought process present Coding Level of Care Code Est Pt Level 4 (11964) Complex EM visit Add On G2211 Diagnoses Vitamin D deficiency E55.9 Dyslipidemia E78.5 Family history of hypothyroidism Z83.49 Nasal congestion with rhinorrhea R09.81; J34.89 Intermittent palpitations R00.2 Generalized anxiety disorder F41.1 Additional Codes PHQ-9 - 10859 - PHQ-9 Billing: Yes ([id number]) BARBARA-7 Assessment Billing - BARBARA-7 Assessment Tool: BARBARA-7 Assessment 15526 ([id number]) Assessment & Plan Assessment & Plan (1) Vitamin D deficiency: Code(s): E55.9 - Vitamin D deficiency, unspecified Category: Medical Plan: Vitamin-D level to be checked (2) Dyslipidemia: Code(s): E78.5 - Hyperlipidemia, unspecified Category: Medical Plan: Fasting lipid panel ordered, reinforced importance of following a low- cholesterol diet and getting his eyes. (3) Family history of hypothyroidism: Code(s): Z83.49 - Family history of other endocrine, nutritional and metabolic diseases Plan: Will check TSH and free T4 (4) Nasal congestion with rhinorrhea: Code(s): R09.81 - Nasal congestion; J34.89 - Other specified disorders of nose and nasal sinuses Category: Medical Plan: Advised to try taking [id number] Vicenta D 12 hour tablet, just take once tablet in the morning as needed for nasal congestion (5) Intermittent palpitations: Code(s): R00.2 - Palpitations Category: Medical Plan: Continued on metoprolol succinate ER 50 mg per tablet to take 1 tablet daily, refill sent (6) Generalized anxiety disorder: Code(s): F41.1 - Generalized anxiety disorder Category: Medical Plan: Controlled on paroxetine 10 mg daily Orders: Orders Basic Metabolic Panel Fasting 06/22/24 E55.9 - Vitamin D deficiency, unspecified, E78.5 - Hyperlipidemia, unspecified, R00.2 - Palpitations, Z78.0 - Asymptomatic menopausal state Aspartate Amino Transferase 06/22/24 E55.9 - Vitamin D deficiency, unspecified, E78.5 - Hyperlipidemia, unspecified, R00.2 - Palpitations, Z78.0 - Asymptomatic menopausal state Alanine Aminotransferase 06/22/24 E55.9 - Vitamin D deficiency, unspecified, E78.5 - Hyperlipidemia, unspecified, R00.2 - Palpitations, Z78.0 - Asymptomatic menopausal state TSH reflex Free T4 06/22/24 Z83.49 - Family history of other endocrine, nutritional and metabolic diseases Vitamin D 25-OH Total 06/22/24 E55.9 - Vitamin D deficiency, unspecified, E78.5 - Hyperlipidemia, unspecified, R00.2 - Palpitations, Z78.0 - Asymptomatic menopausal state Liver Panel 06/22/24 E55.9 - Vitamin D deficiency, unspecified, E78.5 - Hyperlipidemia, unspecified, R00.2 - Palpitations, Z78.0 - Asymptomatic menopausal state Medications: Changed From metoprolol succinate ER 1/2 tablet po qd 50 mg (1/2 x 100 mg) PO DAILY 3 months 45 tabs 0RF To metoprolol succinate ER 1/2 tablet po qd 50 mg PO DAILY 3 months 90 tabs 4RF
[2024-06-22 09:26] VITALS: BP 102/70; PULSE 96; TEMP 37; O2SAT 94; BMI 35.1
--- OUTSIDE RECORDS SUMMARY | 2024-06-22 09:59 | XMS_ITS | Clinical Summary ---
Author Organization [facility] Address [address] [place] [address] Care Team Providers Care Cabinet Maker Name Role Phone Isabel Astorga MD Primary Care Provider [phone] Allergies No known active allergies Medications Medication [...] age to complete this topic Care Teams Cabinet Maker Relationship Specialty Start Date End Date Isabel Astorga MD [address] [place] [address] PCP - General Internal Medicine 06/23/21
--- OUTSIDE RECORDS SUMMARY | 2024-06-22 09:59 | XMS_ITS | Clinical Summary ---
Author Organization [facility] Address [address] [place] [address] Care Team Providers Care Pushcart Peddler Name Role Phone Isabel Astorga MD Primary [...] age to complete this topic Care Teams Pushcart Peddler Relationship Specialty Start Date End Date Isabel Astorga MD [address] [place] [address] PCP - General Internal Medicine 10/12/11
== END 2024-06-22 10:52 | disposition home or self-care (01) ==
PROVIDERS: PCP Internal Medicine; Visit Provider Internal Medicine
DX: E55.9 Vitamin D deficiency, unspecified (principal); E78.5 Hyperlipidemia, unspecified; Z83.49 Family history of other endocrine, nutritional and metabolic diseases; R09.81 Nasal congestion; J34.89 Other specified disorders of nose and nasal sinuses; R00.2 Palpitations; F41.1 Generalized anxiety disorder

== ENCOUNTER → 2024-06-22 09:19 | Outpatient (BNVA) | payer MEDICARE, OTHER, SELFPAY | PROVIDERS: PCP Internal Medicine; Visit Provider Internal Medicine | DX: E55.9 Vitamin D deficiency, unspecified (principal); E78.5 Hyperlipidemia, unspecified; R90.81 Abnormal echoencephalogram; J34.89 Other specified disorders of nose and nasal sinuses; R00.2 Palpitations; F41.1 Generalized anxiety disorder; Z83.49 Family history of other endocrine, nutritional and metabolic diseases | CPT/HCPCS: 96127 ==

== ENCOUNTER 2024-07-13 08:23 | Outpatient (AMB) | payer MEDICARE, OTHER, SELFPAY ==
--- NOTE | 2024-07-13 08:25 | MHC.OFFWIV ---
Intake Vital Signs 07/13/24 08:26 Height 5 ft 7 in Weight 224 lb BMI 35.1 BP 110/70 Blood Pressure Location Lt brachial Position Sitting Pulse 78 Pulse Source Pulse Oximeter Temp 99.1 F Temp Source Oral Pulse Oximetry (%) 96 Intake Visit Reasons: EP Sore throat, fatigue Intake Note: pt is here for sore throat, fatigue Patient Tobacco Use Status: Former Tobacco user Allergies adhesive [Adhesive] Allergy (Mild, Verified 07/13/24 08:26) BLISTERS codeine [Codeine] Allergy (Mild, Verified 07/13/24 08:26) VOMITING meperidine [From Demerol] Adverse Reaction (Mild, Verified 07/13/24 08:26) VOMITING Do you need a note to return to daycare/school/sports/work: No HPI HPI Comments History of Present Illness Details 63 y/o female patient who presents to the walk in clinic with c/o Sore-throat and Fatigue since . She was seen at the Walk in clinic back in May for similar symptoms and treated with Amoxicillin. SARs was negative. COUNTS INCLUDE 234 BEDS AT THE [facility] Medical History (Updated 07/13/24 @ 08:46 by Jazz Horner NP) Acute bacterial pharyngitis Hx of parotitis Dyslipidemia Vitamin D deficiency Contact dermatitis Sjogren's syndrome Parotitis Intermittent palpitations Intermittent lightheadedness Family history of thyroid disease Family history of thyroid disease in father Family history of breast cancer in sister Generalized anxiety disorder Heartburn Palpitations Surgical History No pertinent past surgical history Family History Brother Substance use disorder Brother Substance use disorder Father Substance use disorder Social History Housing: House Alcohol intake: never Patient Tobacco Use Status: Former Tobacco user Years Smoked: 5 yrs e-Cigarette/Vaping Use: Never Used service: No Current occupational status: employed Cognitive needs: No Hearing needs: No Vision needs: Yes Review of Systems Const All systems reviewed & are unremarkable except as noted in HPI and below Physical Exam Vital Signs: Last Vital Signs Temp 99.1 F 07/13/24 08:26 Pulse 78 07/13/24 08:26 BP 110/70 07/13/24 08:26 Pulse Ox 96 07/13/24 08:26 BMI result Body Mass Index 35.1 Const General: cooperative and no acute distress Nutritional Appearance: obese Orientation/consciousness: patient oriented x3 HEENT Head: Yes normocephalic Ears: external ears normal General nose exam: Normal external nose present Face and sinus: Yes sinuses nontender Mouth: moist mucous membranes Throat: Yes uvula midline Resp Effort & Inspection: normal respiratory effort Auscultation: clear to auscultation bilaterally, no crackles, no rales, no rhonchi and no wheezes Cardio Heart sounds: S1 normal heart sound present and S2 normal heart sound present Neuro General: patient oriented x3 Results AMB Rapid Strep AMB Rapid Strep Positive Last Edit by Roly Castellanos CMA on 07/13/24 08:46 Results Reviewed Results Reviewed: Laboratory Last Values Strep Scn [facility] Clinic Positive 07/13/24 08:45 Assessment & Plan Assessment & Plan (1) Acute respiratory disease: Code(s): J06.9 - Acute upper respiratory infection, unspecified Plan: Ordered SARs (2) Acute bacterial pharyngitis: Code(s): J02.8 - Acute pharyngitis due to other specified organisms; B96.89 - Other specified bacterial agents as the cause of diseases classified elsewhere Plan: Rapid Strep Positive Ordered PCN for 10 days. Orders: Orders SARS-CoV2/FLU/RSV Today J06.9 - Acute upper respiratory infection, unspecified AMB Rapid Strep Screen Today Z13.9 - Encounter for screening, unspecified Medications: New penicillin V potassium 500 mg PO BID 20 tabs 0RF 10 days B96.89 - Other specified bacterial agents as the cause of diseases classified elsewhere, J02.8 - Acute pharyngitis due to other specified organisms Coding Level of Care Code Est Pt Level 4 (21205) Diagnoses Acute respiratory disease J06.9 Acute bacterial pharyngitis J02.8; B96.89 Time Spent (min) 20
[2024-07-13 08:26] VITALS: BP 110/70; PULSE 78; TEMP 37.3; O2SAT 96; BMI 35.1
--- OUTSIDE RECORDS SUMMARY | 2024-07-13 08:39 | XMS_ITS | Clinical Summary ---
Author Organization [facility] Address [address] [place] [address] Care Team Providers Care Colorer Hides And Skins Name Role Phone Isabel Astorga MD Primary Care Provider [phone] Medical History Medical History Date Comments Symptomatic [...] age to complete this topic Care Teams Colorer Hides And Skins Relationship Specialty Start Date End Date Isabel Astorga MD [address] [place] [address] PCP - General Internal Medicine 10/12/11
--- OUTSIDE RECORDS SUMMARY | 2024-07-13 08:39 | XMS_ITS | Clinical Summary ---
Author Organization [facility] Address [address] [place] [address] Care Team Providers Care Machine Clerical Verifier Name Role Phone Isabel Astorga MD Primary Care Provider [phone] Allergies No known active allergies Medications Medication [...] age to complete this topic Care Teams Machine Clerical Verifier Relationship Specialty Start Date End Date Isabel Astorga MD [address] [place] [address] PCP - General Internal Medicine 06/23/21
== END 2024-07-13 08:51 | disposition home or self-care (01) ==
PROVIDERS: PCP Internal Medicine; Visit Provider Nurse Practitioner Family
DX: J06.9 Acute upper respiratory infection, unspecified (principal); J02.8 Acute pharyngitis due to other specified organisms; B96.89 Other specified bacterial agents as the cause of diseases classified elsewhere; Z13.9 Encounter for screening, unspecified

== ENCOUNTER 2024-07-13 08:23 | Outpatient (REF) | payer MEDICARE, OTHER, SELFPAY ==
--- OUTSIDE RECORDS SUMMARY | 2024-07-13 09:04 | XMS_ITS | Clinical Summary ---
Author Organization [facility] Address [address] [place] [address] Care Team Providers Care Tape Cutter Name Role Phone Isabel Astorga MD Primary [...] age to complete this topic Care Teams Tape Cutter Relationship Specialty Start Date End Date Isabel Astorga MD [address] [place] [address] PCP - General Internal Medicine 10/12/11
--- OUTSIDE RECORDS SUMMARY | 2024-07-13 09:04 | XMS_ITS | Clinical Summary ---
Author Organization [facility] Address [address] [place] [address] Care Team Providers Care Table Runner Name Role Phone Isabel Astorga MD Primary Care Provider [phone] Allergies No known active allergies Medications Medication [...] age to complete this topic Care Teams Table Runner Relationship Specialty Start Date End Date Isabel Astorga MD [address] [place] [address] PCP - General Internal Medicine 06/23/21
[2024-07-13 11:25] LABS: Influenza A PCR NEGATIVE (Negative); Influenza B PCR NEGATIVE (Negative); Resp Syncy Virus RNA Qual PCR NEGATIVE (Negative); SARS COV2 PCR INHOUSE NEGATIVE (Negative)
== END 2024-07-13 08:24 | disposition home or self-care (01) ==
LOC: HO.LAB 08:23
PROVIDERS: Nurse Practitioner Family; PCP Internal Medicine
DX: J06.9 Acute upper respiratory infection, unspecified (principal); J02.8 Acute pharyngitis due to other specified organisms; B96.89 Other specified bacterial agents as the cause of diseases classified elsewhere
CPT/HCPCS: 0241U; 87880; 99212

== ENCOUNTER 2025-02-03 13:11 | Outpatient (AMB) | payer MEDICARE, OTHER, SELFPAY ==
[2025-02-03 13:23] VITALS: BP 100/62; PULSE 82; RESP 16; TEMP 36.8; O2SAT 93; BMI 35.1
--- NOTE | 2025-02-03 13:23 | A.OFFPC_ITS ---
Vital Signs 02/03/25 13:23 Height 5 ft 7 in Weight 224 lb BMI 35.1 BP 100/62 Blood Pressure Location Rt brachial Position Sitting Respiration 16 Pulse 82 Pulse Source Pulse Oximeter Temp 98.2 F Temp Source Oral Pulse Oximetry (%) 93 Oxygen Delivery Method Room Air Intake Visit Reasons: Annual PE Intake Note: Pt is here today for her PE: Last colonoscopy 07/05/20 Allergies adhesive (Adhesive) Allergy (Mild, Verified 02/03/25 13:51) BLISTERS codeine (Codeine) Allergy (Mild, Verified 02/03/25 13:51) VOMITING meperidine (From Demerol) Adverse Reaction (Mild, Verified 02/03/25 13:51) VOMITING Medication List - Last Reconciled 02/03/25 by Isabel Astorga MD famotidine (Pepcid) 40 mg PO BEDTIME PRN fluticasone propionate 50 mcg/actuation (Flonase Allergy Relief) 2 sprays intranasal DAILY metoprolol succinate ER 50 mg PO DAILY 3 months paroxetine HCl 10 mg PO QAM triamcinolone acetonide 0.5% 1 appl topical DAILY Tobacco use date assessed: 02/03/25 Fall risk assessment: No Falls in past year Last assessed Fall Risk: 02/03/25 Dental Screening Dental Screen Date: 07/01/24 Did you have a dental visit in the last 12 months?: No Did you have a dental problem in the last 6 months where you did not have access to dental care?: No Was dental information given to patient?: Patient has dentist HPI Annual PE HPI Details 64 year-old lady with past medical histo ry of melanoma, dyslipidemia, Sjogren syndrome, and generalized anxiety disorder, here today for her physical exam. She had her screening colonoscopy done by Dr. Tobar in 2020 with negative findings, repeat due again in 2030. [facility] Medical History (Updated 02/03/25 @ 14:14 by Isabel Astorga MD) History of melanoma Acute bacterial pharyngitis Hx of parotitis Dyslipidemia Vitamin D deficiency Contact dermatitis Sjogren's syndrome Parotitis Intermittent palpitations Intermittent lightheadedness Family history of thyroid disease Family history of thyroid disease in father Family history of breast cancer in sister Generalized anxiety disorder Heartburn Palpitations Surgical History No pertinent past surgical history Family History Brother Substance use disorder Brother Substance use disorder Father Substance use disorder Social History Housing: House Alcohol intake: never Patient Tobacco Use Status: Former Tobacco user Years Smoked: 5 yrs e-Cigarette/Vaping Use: Never Used service: No Current occupational status: employed Cognitive needs: No Hearing needs: No Vision needs: Yes Questionnaire PHQ-9 Over the last 2 weeks, how often have you been bothered by any of the following problems? Depression Screening Interpretation: Negative Depression Screening Done: Yes Source: Developed by Drs. Tahir Burgess, Dominga Bran, Tal Kirby and colleagues, with an educational ricki from [employer]. Thrive Questionnaire Date Thrive assessed: 06/18/23 AUDIT C Alcohol Use Questionnaire (AUDIT-C) 1. How often do you have a drink containing alcohol?: Never Total Score: 0 BARBARA-7 AMB Questionnaire BARBARA-7 Date BARBARA - 7 assessed: 06/23/24 Source: Developed by Drs. Tahir Burgess, Dominga Bran, Tal Kirby and colleagues, with an educational ricki from [employer]. BARBARA-7 Assessment Billing BARBARA-7 Assessment Tool: BARBARA-7 Assessment 79207 Review of Systems Const Denies body aches, Denies fever(s) and Denies weakness Eyes Denies change in vision ENT Reports as per HPI, Denies dizziness, Denies nasal discharge and Denies disequilibrium Card Denies chest pain, Denies lightheadedness and Denies dyspnea Resp Denies chest congestion, Denies cough and Denies dyspnea GI Denies abdominal pain, Denies change in bowel habits and Reports heartburn (Takes famotidine daily) Reports no additional complaints Musc Reports no additional complaints Skin/Breast Denies breast swelling, Denies breast pain, Denies breast mass and Denies rash Neuro Denies dizziness, Denies disequilibrium and Denies weakness Psych Reports no additional complaints Endo Reports no additional complaints Claudio/Lymph Reports no additional complaints Aller/Immun Reports no additional complaints Physical exam (Primary Care) Vital Signs: Last Vital Signs Temp 98.2 F 02/03/25 13:23 Pulse 82 02/03/25 13:23 Resp 16 02/03/25 13:23 BP 100/62 02/03/25 13:23 Pulse Ox 93 02/03/25 13:23 Oxygen Delivery Method Room Air 02/03/25 13:23 BMI result Body Mass Index 35.1 Tobacco/Smoking Status: Tobacco use Status Tobacco use date assessed 02/03/25 02/03/25 13:43 Patient Tobacco Use Status Former Tobacco user 02/03/25 13:24 e-Cigarette/Vaping Use Never Used 02/03/25 13:24 Depression Screening Interpretation: Negative Thrive Assessment: Date of Thrive Assessment Date Thrive assessed 06/18/23 02/03/25 13:24 Advance Care Planning discussion: Completed/Scanned Date of discussion: 02/03/25 Who was present: Patient Forms completed: Health Care Proxy Time spent: 16-45 minutes Actual minutes spent: 2 Const Other: Alert oriented x3, no acute cardiorespiratory distress noted, ambulatory with normal gait HENMT Head: Yes normocephalic Ears: external ears normal, TM's normal bilaterally and EAC's normal General nose exam: Normal external nose present, No nasal discharge present and Abnormal mucous membranes and turbinates present erythematous Face and sinus: Yes sinuses nontender and Yes face symmetric Mouth: Normal oral and palatal mucosa present, Normal salivary glands and ducts present and oropharynx normal Eyes General: appearance normal, both eyes and all related structures Neck Neck: Yes full ROM, Yes no lymphadenopathy and Yes supple Chest Breast/axilla inspection: normal inspection of the breasts Breast/axilla palpation: normal palpation of the breasts Resp Auscultation: clear to auscultation bilaterally Cardio Other: S1-S2 present regular rate and rhythm GI Palpation (GI): Soft to palpation, nontender, no guarding and no masses Auscultation: normal bowel sounds Other: She sees her own OBGYN at [facility] General: Yes no CVA tenderness Back/Spine/Pelvis Back: no CVA tenderness and No back tenderness Skin Other: Slightly raised erythematous circular lesions on anterior chest wall, scattered raised brownish lacks on chest Neuro General: gait normal, tone normal, moves all extremities and CN's II-XI intact bilaterally Gait exam (Neuro): Normal gait present Extrem General: Yes full ROM, Yes no joint enlargement, Yes no clubbing, cyanosis or edema and Yes normal gait Psych Appearance: grossly normal and well kempt Mental Status: mental status grossly normal Speech and movement: Normal speech and movement present Affect: normal affect Attitude: cooperative Thought process: Normal thought process present Coding Level of Care Code Est Pt Prev Care >65y(44131) Diagnoses Skin lesion of chest wall L98.9 Dyslipidemia E78.5 Heartburn R12 History of melanoma Z85.820 Annual visit for general adult medical examination with abnormal findings Z00. Advance directive discussed with patient Z71.89 Additional Codes Vital Signs *Quality* - Advance Care Planning discussion: Completed/Scanned ([id number]) Vital Signs *Quality* - Time spent: 16-45 minutes ([id number]) BARBARA-7 Assessment Billing - BARBARA-7 Assessment Tool: BARBARA-7 Assessment 37647 ([id number]) Assessment & Plan Assessment & Plan (1) Skin lesion of chest wall: Code(s): L98.9 - Disorder of the skin and subcutaneous tissue, unspecified Plan: Referred to [facility] for further evaluation management, positive history of melanoma and basal cell CA on left forearm and wrist (2) Dyslipidemia: Code(s): E78.5 - Hyperlipidemia, unspecified Category: Medical Plan: Fasting lipid panel ordered today (3) Heartburn: Code(s): R12 - Heartburn Category: Medical Plan: Takes famotidine 40 mg at bedtime as needed , avoidance of triggers of heartburn (4) History of melanoma: Comment: Left wrist Code(s): Z85.820 - Personal history of malignant melanoma of skin Category: Medical Plan: Referred to [facility] for further skin cancer screening (5) Annual visit for general adult medical examination with abnormal findings: Code(s): Z00.01 - Encounter for general adult medical examination with abnormal findings Plan: Will check appropriate labs. Recommended dental visit every 6 months and regular eye exams, at least every 2 years. Take adequate calcium in diet and vitamin-D 3 at 2000 IU per cap once a day, in addition to weight-bearing exercises to help maintain good muscle tone and weight control. Instructed to do self-breast exam, and r screening mammogram together with a bone density scan ordered. Up-to-date with her screening colonoscopy with negative findings, due again in 2030. Up-to-date with her cervical cancer screening, goes to an OBGYN at [facility].. Declined flu vaccine and COVID booster. Does not want to get shingles vaccine or pneumococcal vaccination (6) Advance directive discussed with patient: Code(s): Z71.89 - Other specified counseling Plan: Initiated the conversation about Advanced Directives. Advanced Directives help patients prepare for current and future decisions about their medical treatment and place of care. Discussed with patient that it is a process where a patients current condition and prognosis are reviewed, their wishes for information regarding their illness are elicited, and likely medical dilemmas are presented and options discussed. Healthcare proxy form completed today. The form can be amended as needed, reviewed yearly and make changes as needed Orders: Orders Lipid Panel 02/03/25 D72.819 - Decreased white blood cell count, unspecified, Z13.220 - Encounter for screening for lipoid disorders XR DEXA axial skeleton 02/03/25 Z12.31 - Encounter for screening mammogram for malignant neoplasm of breast, Z78.0 - Asymptomatic menopausal state MM tomosynthesis screening BI 02/03/25 Z12.31 - Encounter for screening mammogram for malignant neoplasm of breast, Z78.0 - Asymptomatic menopausal state Complete Blood Count Auto Diff 02/03/25 D72.819 - Decreased white blood cell count, unspecified, Z13.220 - Encounter for screening for lipoid disorders Referrals Dermatology Referral L98.9 - Disorder of the skin and subcutaneous tissue, unspecified, Z12.83 - Encounter for screening for malignant neoplasm of skin
== END 2025-02-03 14:18 | disposition home or self-care (01) ==
LOC: HO.HMCC 13:12
PROVIDERS: PCP Internal Medicine; Visit Provider Internal Medicine
DX: Z00.00 Encounter for general adult medical examination without abnormal findings (principal); E78.5 Hyperlipidemia, unspecified; L98.9 Disorder of the skin and subcutaneous tissue, unspecified; R12 Heartburn; Z85.820 Personal history of malignant melanoma of skin; Z71.89 Other specified counseling

== ENCOUNTER → 2025-02-03 13:11 | Outpatient (BNVA) | payer MEDICARE, OTHER, SELFPAY | PROVIDERS: PCP Internal Medicine; Visit Provider Internal Medicine | DX: Z00.01 Encounter for general adult medical examination with abnormal findings (principal); E78.5 Hyperlipidemia, unspecified; M35.00 Sjogren syndrome, unspecified; F41.1 Generalized anxiety disorder; L98.9 Disorder of the skin and subcutaneous tissue, unspecified; Z85.820 Personal history of malignant melanoma of skin; Z71.89 Other specified counseling | CPT/HCPCS: 96127; 99397 ==

== ENCOUNTER 2025-03-24 09:19 | Outpatient (REF) | payer MEDICARE, OTHER, SELFPAY ==
--- OUTSIDE RECORDS SUMMARY | 2025-03-24 10:17 | XMS_ITS | Clinical Summary ---
Author Organization [facility] it Address [address] [place] [address] Care Team Providers Care Brand Representative Name Role Phone Isabel Astorga MD Primary [...] Last Done Comments Breast Cancer Screening 1960 Colorectal Cancer Screening: Colonoscopy 1960 DTaP,Tdap,and Td Vaccines (1 - Tdap) 1977 Pneumococcal Vaccine: 50+ Ye ars (1 of 1 - PCV) 2008 Zoster Vaccines (1 of 2) 2008 Hepatitis C Screening 04/06/2022 Osteoporosis Screening (Bone Density Screening) 04/06/2022 Social Influencers of Health Screening 04/06/2022 Falls Risk Assessment 11/02/2023 Depression Screening 04/29/2024 COVID-19 Vaccine (1 - 2024-2 6 season) 2024 Influenza Vaccine (#1) 2024 RSV Immunization Adult Patie nts (1 - 1-dose 75+ series) 2033 HIB [...] age to complete this topic Meningococcal B Vaccine Aged Out No l onger eligible based on patient's age to complete this topic RSV Immunization Patients Un jaylin 20 months Aged Out No longer eligible b ased on patient's age to complete this topic Varicella Vaccines Aged Out No longer eligible based on patient's age to complete this topic Care Teams Brand Representative Relationship Specialty Start Date End Date Isabel Astorga MD [address] [place] [address] PCP - General Internal Medicine 10/12/11
--- OUTSIDE RECORDS SUMMARY | 2025-03-24 10:17 | XMS_ITS ---
Author Name [facility] Organization Unknown History of Medication Use Medication Directions Dispensed Refills Start Date End Date Stat metoprolol succinate ER 100 mg tablet,extended release 24 hr TAKE 100 MG ORALLY DAILY SCHEDULE NEXT PCP APPT FOR FUTURE REFILLS active omeprazole 40 mg capsule,delayed release 40 MG ORALLY DAILY active paroxetine 10 mg tablet TAKE 1 TABLET BY MOUTH EVERY MORNING active triamcinolone acetonide 0.5 % topical cream APPLY TOPICALLY TO AFFECTED AREA(S) ONCE DAILY active Encounters Encounter Type Encounter Reason Primary Diagnosis Location Date Ambulatory [facility] [place] 10/04/2023 Ambulatory [facility] [place] 08/30/2023 Ambulatory [facility] [place] 07/26/2023 Ambulatory [facility] [place] 07/08/2023 Ambulatory [facility] [place] 07/08/2023 Ambulatory [facility] [place] 07/05/2023 Ambulatory [facility] [place] 06/17/2023
--- OUTSIDE RECORDS SUMMARY | 2025-03-24 10:17 | XMS_ITS | Clinical Summary ---
Author Organization [facility] Address [address] [place] [address] Care Team Providers Care Wall Man Name Role Phone Isabel Astorga MD Primary Care Provider [phone] Allergies No known active allergies Medications Medication [...] Tdap / Td (1 - Tdap) 1977 Colon Cancer Screening (Colonoscopy) 11/02/2003 Breast Cancer Screening (Mammogram) 2008 Shingrix-Zoster Vaccine (1 of 2) 2008 Fall Risk Assessment 11/02/2023 Osteoporosis Screening (DEXA Scan) 11/02/2023 Pneumococcal Vaccine (1 of 1 - PCV) 11/02/2023 Influenza Vaccine (#1) 2024 RSV Adult > 60+ Yrs or Pregn ant (1 - 1-dose 75+ series) 2033 Hepatitis B Vaccines Aged Out No long er eligible based on patient's age to complete this topic RSV Ped < 20 months Aged Out No longe r eligible based on patient's age to complete this topic Care Teams Wall Man Relationship Specialty Start Date End Date Isabel Astorga MD [address] [place] [address] PCP - General Internal Medicine 06/23/21
[2025-03-24 13:58] LABS: MANUAL DIFF FLAG NO
[2025-03-24 14:06] LABS: Hematocrit 45.1 % (37.0-47.0); Hemoglobin 14.7 g/dl (12.0-16.0); Imm Gran Abs Auto 0.01 X10*3/uL (0.00-0.03); Imm Gran Pct Auto 0.2 % (0.0-0.4); Lymphocytes Absolute Auto 1.0 X10*3/uL (1.2-4.9); Mean Corpuscular HGB Conc 32.6 g/dl (31.0-35.0); Mean Corpuscular Hemoglobin 29.2 pg (27.0-33.0); Mean Corpuscular Volume 89.7 fL (80.0-98.0); NRBC Abs Auto 0.000 X10*3/uL (0.0-0.012); NRBC Pct Auto 0.0 /100WBC (0.0-0.2); Platelet Count 276 X10*3/uL (160-400); Red Blood Count 5.03 X10*6/uL (4.20-5.50); White Blood Count 5.8 X10*3/uL (4.8-10.8)
[2025-03-24 15:32] LABS: Alanine Aminotransferase 24 U/L (0-31); Anion Gap 11 (12-20); Aspartate Amino Transferase 39 U/L (5-31); Blood Urea Nitrogen 19 mg/dL (9-16); Calcium 9.8 mg/dL (8.4-10.2); Carbon Dioxide 29 mmol/L (22-29); Chloride 106 mmol/L (96-108); Cholesterol 202 mg/dL (<200); Estimated Glomerular Filt Rate 58; HDL Cholesterol 39 mg/dL (>40); Potassium 4.5 mmol/L (3.3-5.1); Sodium 141 mmol/L (135-145); Triglycerides 130 mg/dL (<150)
== END 2025-03-24 09:20 | disposition home or self-care (01) ==
LOC: HO.HMGCLDS 09:19
PROVIDERS: PCP Internal Medicine; Visit Provider Internal Medicine
DX: R00.2 Palpitations (principal); E55.9 Vitamin D deficiency, unspecified; E78.5 Hyperlipidemia, unspecified; D72.819 Decreased white blood cell count, unspecified; Z78.0 Asymptomatic menopausal state; Z83.49 Family history of other endocrine, nutritional and metabolic diseases
CPT/HCPCS: 36415; 80048; 80061; 82306; 84443; 84450; 84460; 85025